=== PATIENT | male | born 2000 | race Hispanic/Latino ===

== ENCOUNTER 2024-03-21 13:37 | Emergency (ER) | payer OTHER ==
[~2024-03-21] VITALS: Ht 177.8 cm; Wt 163.3 kg
[2024-03-21 14:26] LABS: SARS-CoV-2, RNA, NAAT NEGATIVE SARS CoV-2 (NEGATIVE)
[2024-03-21 14:34] LABS: INFLUENZA TYPE A Negative For Type A (NEGATIVE); INFLUENZA TYPE B Negative For Type B (NEGATIVE)
[2024-03-21 17:17] VITALS: BP 136/95; PULSE 90; RESP 16; O2SAT 100
== END 2024-03-21 16:57 | disposition home or self-care (01) ==
LOC: EDH 13:37
DX: B34.9 Viral infection, unspecified (principal); Z20.822 Contact with and (suspected) exposure to COVID-19
CPT/HCPCS: 87635; 87804; 87880

== ENCOUNTER → 2025-02-02 | Outpatient (CLI) | payer OTHER ==
[2025-02-02 12:13] LABS: BASOPHILS # (AUTO) 0.03 K/uL (0.00-0.20); BASOPHILS % (AUTO) 0.5 % (0.0-5.0); EOSINOPHILS % (AUTO) 1.6 % (0.0-8.0); HEMATOCRIT 41.2 % (42-54); IMMATURE GRANULOCYTE ABSOLUTE 0.03 K/uL (0-1); LYMPHOCYTES # (AUTO) 1.8 K/uL (1.0-4.8); LYMPHOCYTES % (AUTO) 28.4 % (21.0-51.0); MEAN CORPUSCULAR HEMOGLOBIN 28.5 pg (27.0-33.0); MEAN CORPUSCULAR VOLUME 86.4 fL (79-99); MONOCYTES # (AUTO) 0.5 K/uL (0.1-1.0); MONOCYTES % (AUTO) 8.1 % (3.0-13.0); NEUTROPHILS # (AUTO) 3.9 K/uL (1.8-7.7); NEUTROPHILS % (AUTO) 60.9 % (40.0-77.0); PLATELET COUNT (AUTO) 286 K/uL (130-400); RED BLOOD CELL COUNT(AUTO) 4.77 MIL/uL (4.50-6.20); RED CELL DISTRIBUTION WIDTH 13.1 % (11.0-15.5); WHITE BLOOD COUNT (AUTO) 6.5 K/uL (4.8-10.8)
[2025-02-02 12:27] LABS: HEMOGLOBIN A1C 5.4 % (4.0-6.0)
[2025-02-02 12:31] LABS: ALBUMIN 3.8 g/dL (3.5-5.0); BILIRUBIN,TOTAL 0.3 mg/dL (0.2-1.0); CREATININE 0.8 mg/dL (0.5-1.3); POTASSIUM 3.8 mmol/L (3.5-5.1); TOTAL PROTEIN, SERUM 7.6 g/dL (6.0-8.3)
[2025-02-02 12:53] LABS: THYROID STIMULATING HORMONE 1.22 uIU/mL (0.36-3.74)
== END | disposition home or self-care (01) ==
LOC: LAB 11:22
PROVIDERS: ATTEND Nurse Practitioner Adult Health
DX: E78.2 Mixed hyperlipidemia (principal); Z00.00 Encounter for general adult medical examination without abnormal findings; E55.9 Vitamin D deficiency, unspecified; E03.8 Other specified hypothyroidism; R97.20 Elevated prostate specific antigen [PSA]; R53.83 Other fatigue
CPT/HCPCS: 36415; 80053; 80061; 82306; 83036; 84443; 85025

== ENCOUNTER → 2025-02-13 | Outpatient (CLI) | payer OTHER ==
--- NOTE | 2025-02-13 21:56 | HMCIMG ---
EXAM: MR Right shoulder without contrast. CLINICAL HISTORY: Pain. TECHNIQUE: Multisequence, multiplanar magnetic resonance images of the right shoulder without intravenous contrast. CONTRAST: None. COMPARISON: None provided. FINDINGS: Mild widening of the acromioclavicular joint space measuring approximately 10-11 mm. Mild acromioclavicular joint effusion and mild marrow edema noted. Normal supraspinatus canal. No rotator cuff tear. The subscapularis, supraspinatus, infraspinatus, and teres minor tendons are intact. No definitive subacromial/subdeltoid bursitis. Unremarkable glenohumeral joint. The glenoid cartilaginous and bony labrum are grossly intact, no labral tear on non-arthrogram evaluation. Trace fluid in the glenohumeral joint is likely physiologic. The long head of the biceps tendon is intact including the superior labral attachment. Bone marrow signal is fairly homogeneous in the remaining bones; no fracture or AVN. Intact intrinsic ligaments. The deltoid and the other surrounding muscles are unremarkable. No soft tissue masses. IMPRESSION: Mild widening of the acromioclavicular joint space measuring approximately 10-11 mm. Mild acromioclavicular joint effusion and mild marrow edema. (Type II injury, [place] classification). /[place]
== END | disposition home or self-care (01) ==
LOC: RAH 08:00
PROVIDERS: ATTEND Nurse Practitioner Adult Health
DX: M25.411 Effusion, right shoulder (principal); R60.0 Localized edema; M25.511 Pain in right shoulder
CPT/HCPCS: 73221

== ENCOUNTER → 2025-02-13 | Outpatient (CLI) | payer OTHER ==
--- NOTE | 2025-02-14 07:19 | HMCIMG ---
EXAMINATION: ULTRASOUND OF THE THYROID. CLINICAL HISTORY: Non-toxic goiter. COMPARISON: None. TECHNIQUE: Transverse and longitudinal images were obtained through both lobes and the isthmus of the thyroid. FINDINGS: The thyroid gland is normal in caliber with homogenous tissue echotexture. The right thyroid lobe measures 4.6 x 2.1 x 1.7 cm and the left thyroid lobe measures 4.5 x 1.9 x 1.8 cm in the craniocaudal, AP, and transverse dimensions respectively. The isthmus measures 0.40 cm in AP dimension. Right lobe: There are no focal lesions. Left lobe: There are no focal lesions. No significantly enlarged lymph nodes. IMPRESSION: No significant abnormality. /[place]
== END | disposition home or self-care (01) ==
LOC: RAH 08:00
PROVIDERS: ATTEND Nurse Practitioner Adult Health
DX: E04.9 Nontoxic goiter, unspecified (principal)
CPT/HCPCS: 76536